=== PATIENT | male | born 1995 | race Caucasian/White ===

== ENCOUNTER 2023-12-13 20:24 | Emergency (ER) | payer OTHER, SELFPAY ==
--- NOTE | ~2023-12-13 | XR_ITS ---
EXAMINATION: XR knee LT 3V DATE: 12/13/2023 20:52 INDICATION: Left knee pain. TECHNIQUE: 3 views of left knee were obtained. COMPARISON: None. FINDINGS: Alignment is normal. No fracture. Joint spaces are normal. No knee joint effusion. IMPRESSION: 1. Normal left knee. Reviewed, dictated and finalized at location E. IMPRESSION: 1. Normal left knee.
[2023-12-13 20:29] VITALS: BP 148/89; PULSE 92; RESP 20; TEMP 36.3; O2SAT 97
--- NOTE | 2023-12-13 22:46 | ED.GENADULT ---
HPI - General Adult General Chief complaint: Extremity Injury, Lower Stated complaint: L knee pain Time Seen by Provider: 12/13/23 21:46 Source: patient Mode of arrival: ambulatory Limitations: no limitations History of Present Illness HPI narrative: This is a 28-year-old male who presents to the ED with chief complaint of left knee pain times 1 week. Patient reports that he has been doing a lot of repetitive motions at work. 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 Patient reports that he had repetitive moving and twisting of the knee and has pain to the lateral side of the left knee. Denies any specific pop. Denies any trauma or fall. Denies any further site of injury or pain Related Data Allergies Allergy/AdvReac Type Severity Reaction Status Date / Time No Known Allergies Allergy Verified 12/13/23 20:33 Review of Systems Review of Systems: All systems as dictated in HPI Exam Narrative: GENERAL: Well-appearing, well-nourished, and in no acute distress. Obese HEAD: Normocephalic, atraumatic. EYES: PERRLA and EOMI. ENT: Nares clear, no rhinorrhea or epistaxis. Mucous membranes moist. Oropharynx without tonsillar hypertrophy exudate or other lesions. NECK: Supple. No adenopathy or masses. CHEST: No respiratory distress. Clear to auscultation. No wheezes rales or rhonchi HEART: Regular rate and rhythm. No murmur heard. Normal peripheral pulses. ABDOMEN: Soft, nontender, nondistended, normal active bowel sounds. MSK: LLE: No deformity. No bruising. Minimal tenderness throughout the knee joint. Mild tenderness along the hamstrings distribution. Full range of motion. Ambulatory without difficulty RLE: Benign SKIN: Warm, dry, no rash. NEURO: Alert and oriented x3. No focal deficits. PSYCH: Normal mood and affect. Course Vital Signs Vital signs: Vital Signs Temperature 97.4 F L 12/13/23 20:29 Pulse Rate 92 12/13/23 20:29 Respiratory Rate 20 12/13/23 20:29 Blood Pressure 148/89 H 12/13/23 20:29 Pulse Oximetry 97 12/13/23 20:29 Oxygen Delivery Room Air 12/13/23 20:29 Temperature 97.4 F L 12/13/23 20:29 Pulse Rate 92 12/13/23 20:29 Respiratory Rate 20 12/13/23 20:29 Blood Pressure 148/89 H 12/13/23 20:29 Pulse Oximetry 97 12/13/23 20:29 Oxygen Delivery Room Air 12/13/23 20:29 Medical Decision Making MDM Narrative Medical decision making narrative: This is a 28-year-old male who presents to the ED with chief complaint of left knee pain onset x1 week. Vitals are normal. Exam is benign. Ambulatory without difficulty. X-ray shows no acute osseous findings and left knee. Symptoms are consistent with hamstring strain. He has a very repetitive/extensive walking job. Pt will be discharged in stable condition. Return precautions given and supportive measures discussed. Pt is understanding and agreeable with plan for discharge and follow-up with PCP. Vital Signs Vital Signs: Vital Signs Temperature 97.4 F L 12/13/23 20:29 Pulse Rate 92 12/13/23 20:29 Respiratory Rate 20 12/13/23 20:29 Blood Pressure 148/89 H 12/13/23 20:29 Pulse Oximetry 97 12/13/23 20:29 Oxygen Delivery Room Air 12/13/23 20:29 Temperature 97.4 F L 12/13/23 20:29 Pulse Rate 92 12/13/23 20:29 Respiratory Rate 20 12/13/23 20:29 Blood Pressure 148/89 H 12/13/23 20:29 Pulse Oximetry 97 12/13/23 20:29 Oxygen Delivery Room Air 12/13/23 20:29 Discharge Plan Discharge Clinical Impression: Left hamstring muscle strain Patient Disposition: Home, Self-Care Condition: Stable Instructions: Antibiotic Form Additional Instructions: Your exam and imaging today are reassuring overall. This is probably a muscular strain and will heal over the next several weeks. Use ibuprofen 600 mg every 6 hours as needed for pain control. If you have any new or worsening symptoms please return to the ER for further ev
== END 2023-12-13 23:20 | disposition home or self-care (01) ==
PROVIDERS: Emergency Provider Physician Assistant
DX: S76.812A Strain of other specified muscles, fascia and tendons at thigh level, left thigh, initial encounter (principal); X50.3XXA Overexertion from repetitive movements, initial encounter
CPT/HCPCS: 73562; 99283